=== PATIENT | male | born 1940 | race Caucasian/White ===

== ENCOUNTER 2018-01-23 07:39 | Inpatient (IN) | payer MEDICARE, OTHER ==
--- NOTE | 2018-01-23 08:08 | ERNOTE ---
<Anthony Parsons - Last Filed: 01/23/18 08:00> Dyspnea - General Presenting Symptoms: shortness of breath Time Seen by Provider: 01/23/18 08:00 Source: patient Exam Limitations: no limitations - Immun/Allergies/Home Medications Immunizations: IMMUNIZATION HX Immunizations Up to Date Yes History of Influenza Vaccine No Hx Pneumococcal Vaccination No Allergies/Adverse Reactions: Allergies No Known Allergies Allergy (Verified 01/23/18 10:56) Home Medications: HOME MEDICATIONS RX: Warfarin Sodium [Coumadin] 5 mg PO TUTHSA 02/27/12 [Last Taken 07/29/13] RX: Carvedilol [Coreg] 12.5 mg PO BID 07/29/13 [Last Taken 07/29/13] RX: Nitroglycerin [Nitrostat] 0.4 mg SL [id number] PRN 02/01/14 [Last Taken Unknown] RX: Acetaminophen [Tylenol] 650 mg PO Q6H PRN 12/08/15 [Last Taken Unknown] Aspirin [Aspirin Enteric Coated] 81 mg PO DAILY 02/15/16 [Last Taken Unknown] Warfarin Sodium [Coumadin] 2.5 mg PO SUMOWEFR 03/30/16 [Last Taken Unknown] RX: Atorvastatin Calcium 40 mg PO DAILY 12/29/16 [Last Taken Unknown] furosemide 20 mg tablet 20 mg PO DAILY #90 tab 10/26/17 [Last Taken Unknown] lisinopril 40 mg tablet 40 mg PO DAILY #90 tab 10/26/17 [Last Taken Unknown] finasteride 5 mg tablet 5 mg PO DAILY #30 tab 11/12/17 [Last Taken Unknown] potassium chloride ER 20 mEq tablet,extended release(part/cryst) 10 meq PO DAILY 30 Days #15 tab 12/10/17 [Last Taken Unknown] Cyanocobalamin (Vitamin B-12) [Vitamin B12] 1,000 mcg PO DAILY 01/23/18 [Last Taken Unknown] - History of Present Illness Narrative: Pt states he has been getting more short of breath for approx 2 weeks worsening over the past 3 days Severity: moderate, severe Treatment [employer]: paramedics, oxygen Initiating event: Reports: unknown Frequency of episodes: Reports: occassional episodes Modifying Factors - (Improves): Reports: oxygen Associated Symptoms-Dyspnea: Reports: chest pain/discomfort, cough Review of Systems - Review of Systems Constitutional: Absent: fever, chills Respiratory: Present: See HPI Cardiology: Present: chest pain, edema - increasing for 3-4 days Medical History (Last Reviewed 01/23/18 @ 08:04 by Anthony Parsons DO) COPD (chronic obstructive pulmonary disease) Congestive heart failure (CHF) Diabetes mellitus Hypertension Surgical History: Surgical History (Last Reviewed 01/23/18 @ 08:04 by Anthony Parsons DO) Pacemaker Family History: Family History (Last Reviewed 01/23/18 @ 07:52 by Rafael Palma RN) Other CHF (congestive heart failure) Diabetes Social History: Preferred Language Bruneian Smoking Status Never smoker Abuse History No History of abuse Psych History No pertinent hx Alcohol Use none Drug Use none Physical Exam - Physical Exam General Appearance: Present: wd/wn, alert, mild distress Head Exam: Present: normal inspection, no evidence of injury Respiratory: Present: decreased breath sounds Cardiovascular/Chest: Present: regular rate, rhythm Extremity Exam: Present: extremity edema - 3+ bilateral Neurological Exam: Present: alert, oriented, normal mood/affect Skin Exam: Present: warm/dry ED Progress - Vital Signs Vital Signs: Vital Signs 01/23/18 07:40 Temperature 36.6 C Pulse Rate 93 Respiratory Rate 25 H Blood Pressure 144/91 H - Progress/Reassessment Chief Complaint: Dyspnea - Transfer of Care Physician Sign Out: Anthony Parsons Receiving Physician: Parisa Casas Pending Results: Labs, X-ray results Expected Disposition: Admit Departure Clinical Impression: CHF exacerbation Qualifiers: Heart failure type: unspecified Qualified Code(s): I50.9 - Heart failure, unspecified - Departure Disposition: Still a patient Condition: Stable <Parisa Casas - Last Filed: 01/23/18 21:02> Dyspnea - General Presenting Symptoms: shortness of breath Source: patient Exam Limitations: no limitations - Immun/Allergies/Home Medications Immunizations: IMMUNIZATION HX Immunizations Up to Date Yes History of Influenza Vaccine No Hx Pneumococcal Vaccination No - History of Present Illness Narrative: Patient has been short of breath for about two weeks, worse for three days. for the last three days also cough with clear sputum, wheezing ad intermittent chest heaviness Review of Systems - Review of Systems Constitutional: Absent: fever, fussy ENT: Present: nasal drainage Respiratory: Present: shortness of breath, cough Cardiology: Present: chest pain Gastrointestinal/Abdominal: Absent: nausea, vomiting, abdominal pain Genitourinary: Present: no symptoms reported Skin: Absent: rash Neurological: Absent: headache Medical History (Last Reviewed 01/23/18 @ 08:24 by Parisa Casas MD) COPD (chronic obstructive pulmonary disease) Congestive heart failure (CHF) Diabetes mellitus Hypertension Surgical History: Surgical History (Last Updated 01/23/18 @ 08:24 by Parisa Casas MD) Hx of CABG Pacemaker Family History: Family History (Last Reviewed 01/23/18 @ 10:55 by Fermin Bolden RN) Other CHF (congestive heart failure) Diabetes Social History: Preferred Language [place]ian Smoking Status Never smoker Abuse History No History of abuse Psych History No pertinent hx Alcohol Use none Drug Use none Physical Exam - Physical Exam General Appearance: Present: wd/wn, alert, no apparent distress Head Exam: Present: normal inspection Ears, Nose, Throat: Present: normal pharynx Respiratory: Present: decreased breath sounds, expiration (prolonged) Cardiovascular/Chest: Present: regular rate, rhythm Gastrointestinal/Abdominal: Present: nontender, nondistended, soft Extremity Exam: Present: extremity edema Neurological Exam: Present: alert, oriented, normal mood/affect Skin Exam: Present: warm/dry, pallor ED Progress - Results and Orders Patient's Lab Results:: I have reviewed the patient's lab results. - Vital Signs Patient's Vital Signs:: I have reviewed the patient's vital signs. Vital Signs: Vital Signs 01/23/18 07:40 01/23/18 08:04 Temperature 36.6 C Pulse Rate 93 79 Respiratory Rate 25 H 19 Blood Pressure 144/91 H O2 Sat by Pulse Oximetry 92 L - EKG EKG: other - pacemaker EKG EKG read: Interp. by me - X-Ray X-Ray #1 X-Ray: chest - 1. Overall findings suggestive of congestive heart failure. Interpretation: Reviewed by me - Progress/Reassessment Progress Note-Subjective: 01/23/18 08:54 doesn't feel much better after neb treatment, slightly increased air movement d-dimer elevated but INR almost 4 which makes PE less likely 01/23/18 10:03 discussed test results with patient, suggested admission, patient agrees 01/23/18 10:05 discussed with zayra Baker to admit for observation
[2018-01-23 08:19] LABS: Hematocrit 34.9 % (42.0-52.0); Hemoglobin 10.7 gm/dL (13.5-18.0); Mean Cell Volume 98.6 fl (78-100); Mean Corpuscular Hemoglobin 30.2 pg (27-31); Mean Corpuscular Hgb Conc 30.7 g/dl (32-36); Mean Platelet Volume 9.6 fl (8-11.3); Neutrophil # 4.4 K/mm3 (1.3-6.0); Neutrophil % 73.6 % (42-75.0); Platelet Count 152 K/mm3 (150-450); Red Blood Count 3.54 M/mm3 (4.7-6.0); Red Cell Distribution Width 12.7 % (11.5-14.0)
[2018-01-23] MEDS ORDERED: ALBUTEROL SULFATE 2.5 MG/0.5 ML VIAL.NEB IH ONE (08:19)
[2018-01-23 08:25] LABS: INR 3.98 INR (0.90-1.10); Prothrombin Time (Patient) 40.4 Seconds (9.0-11.0)
[2018-01-23 08:35] LABS: Albumin * 3.2 gm/dl (3.4-5.0); BUN/Creatinine Ratio 13.4 (9.0-21.6); Bilirubin, Total 0.6 mg/dL (0.0-1.1); Ca. Corrected For Albumin 8.2 mg/dL (8.4-10.2); Calcium * 7.9 mg/dL (7.9-10.9); Carbon Dioxide 33.3 mmol/L (24-32.6); Potassium 4.3 mmol/L (3.4-4.6); Total Protein 6.8 gm/dL (6.2-8.2)
[2018-01-23] MEDS ORDERED: FUROSEMIDE 10 MG/ML VIAL IV ONE (09:59)
[2018-01-23] MEDS ORDERED: NITROGLYCERIN 0.4 MG/TAB BTL SL PRN (11:58)
--- NOTE | 2018-01-23 11:58 | HP ---
Chief Complaint - Chief Complaint Date of Service: 01/23/18 Time of Service: 11:34 Chief Complaint: Increasing shortness of breath History of Present Illness: Mitch Hudson, is a 77-year-old white male, with previous medical history all chronic atrial fibrillation, chronic renal failure, Stage III, COPD, coronary artery disease, hypertension, who was admitted on 01/23/2018 because of increasing shortness of breath. For the last month, the patient has been noticing that he had been short of breath especially with exertion. One week prior to admission he noticed swelling of his lower extremity, weight gain, and shortness of breath even at rest. For the last 3 days his shortness of breath is even worser and so he finally decided to go to the emergency room today. The emergency room he was found to have an elevated BNP of 8653, INR of 3.9, normal WBC, Cr of 2.01, CXR of CHF with pleural effusion, ABG showed Respiratory Acidosis. . He was given IV lasix and admitted for further evaluation and treatment. He does admit to not following his diet- low salt/diabetic consistent diet. Medical History (Last Reviewed 01/23/18 @ 10:55 by Fermin Bolden RN) COPD (chronic obstructive pulmonary disease) Congestive heart failure (CHF) Diabetes mellitus Hypertension Surgical History: Surgical History (Last Reviewed 01/23/18 @ 10:55 by Fermin Bolden RN) Hx of CABG Pacemaker Family History: Family History (Last Reviewed 01/23/18 @ 10:55 by Fermin Bolden RN) Other CHF (congestive heart failure) Diabetes Social History: Patient Lives/Resources Home Utilized Occupation Retired Preferred Language Guatemalan Do you have any zoroastrianism or No cultural preference? Smoking Status Former smoker Have you smoked in the past 12 No months Do you dip or chew tobacco No Abuse History No History of abuse Psych History No pertinent hx Alcohol Use none Drug Use none Review Of Systems (GEN) - Review of Systems Generalized/Overall Review: Absent: Weakness, Chills, Fever Respiratory: Present: Cough, Shortness of Breath, Orthopnea. Absent: Wheezing Cardiac: Present: Edema. Absent: Chest Pain, Palpitations Abdominal: Absent: Nausea, Vomiting Genitourinary: Absent: Urgency, Dysuria Musculoskeletal: Present: Joint Pain Immunizations: IMMUNIZATION HX Immunizations Up to Date Yes History of Influenza Vaccine No Hx Pneumococcal Vaccination No Allergies/Adverse Reactions: Allergies Allergy/AdvReac Type Severity Reaction Status Date / Time No Known Allergies Allergy Verified 01/23/18 10:56 Home Medications: HOME MEDICATIONS Warfarin Sodium [Coumadin] 5 mg PO TUTHSA 02/27/12 [Last Taken 07/29/13] Carvedilol [Coreg] 12.5 mg PO BID 07/29/13 [Last Taken 07/29/13] Nitroglycerin [Nitrostat] 0.4 mg SL [id number] PRN 02/01/14 [Last Taken Unknown] Acetaminophen [Tylenol] 650 mg PO Q6H PRN 12/08/15 [Last Taken Unknown] Aspirin [Aspirin Enteric Coated] 81 mg PO DAILY 02/15/16 [Last Taken Unknown] Warfarin Sodium [Coumadin] 2.5 mg PO SUMOWEFR 03/30/16 [Last Taken Unknown] Atorvastatin Calcium 40 mg PO DAILY 12/29/16 [Last Taken Unknown] furosemide 20 mg tablet 20 mg PO DAILY #90 tab 10/26/17 [Last Taken Unknown] lisinopril 40 mg tablet 40 mg PO DAILY #90 tab 10/26/17 [Last Taken Unknown] finasteride 5 mg tablet 5 mg PO DAILY #30 tab 11/12/17 [Last Taken Unknown] potassium chloride ER 20 mEq tablet,extended release(part/cryst) 10 meq PO DAILY 30 Days #15 tab 12/10/17 [Last Taken Unknown] Cyanocobalamin (Vitamin B-12) [Vitamin B12] 1,000 mcg PO DAILY 01/23/18 [Last Taken Unknown] Exam - Exam Vital Signs: Vital Signs - Last Taken Temp 36.4 C 01/23/18 10:57 Pulse 74 01/23/18 10:58 Resp 26 H 01/23/18 10:58 BP 138/80 01/23/18 10:58 Pulse Ox 96 01/23/18 10:58 Constitutional: Present: Alert, Oriented x3, Cooperative ENT Exam: Present: hearing grossly normal Eye Exam: bilateral eye: normal inspection, PERRL, EOMI Neck: Present: supple Respiratory: Present: decreased breath sounds, rales, No wheezing Cardiovascular/Chest: Present: no murmur, JVD, irregularly irregular Abdomen: Present: Normal bowel sounds, soft, nontender, distended Extremity: Present: no calf tenderness, lower extremity edema Diagnostic Studies: Abnormal Lab Results 01/23/18 01/23/18 01/23/18 Range/Units 08:10 08:10 08:10 RBC 3.54 L (4.7-6.0) M/mm3 Hgb 10.7 L (13.5-18.0) gm/dL Hct 34.9 L (42.0-52.0) % MCHC 30.7 L (32-36) g/dl Lymphocytes % 12.6 L (20-51) % Monocytes % 10.2 H (0.0-9) % Lymphocytes # 0.75 L (1.5-3.5) k/mm3 PT (9.0-11.0) Seconds INR (Anticoag Therapy) (0.90-1.10) INR D-Dimer 0.53 H (0.19-0.49) ug/mL pCO2 (35.0-48.0) mmHg pO2 (83.0-108.0) mmHg HCO3 (21.0-28.0) mmol/L Total CO2 (19.0-24.0) mmol/L ABG pH (7.35-7.45) ABG O2 Sat (Measured) (94.0-98.0) % Carbon Dioxide 33.3 H (24-32.6) mmol/L Anion Gap 6.0 L (6.8-13.8) mmol/L BUN 27 H (6-23) mg/dL Creatinine 2.01 H (0.4-1.4) mg/dL Est GFR (Non-Af Amer) 35 L (60-130) mL/min Calcium Adj for Albumin 8.2 L (8.4-10.2) mg/dL B-Natriuretic Peptide 8653 H (5-650) pg/mL Albumin 3.2 L (3.4-5.0) gm/dl 01/23/18 01/23/18 Range/Units 08:10 09:48 RBC (4.7-6.0) M/mm3 Hgb (13.5-18.0) gm/dL Hct (42.0-52.0) % MCHC (32-36) g/dl Lymphocytes % (20-51) % Monocytes % (0.0-9) % Lymphocytes # (1.5-3.5) k/mm3 PT 40.4 H (9.0-11.0) Seconds INR (Anticoag Therapy) 3.98 H (0.90-1.10) INR D-Dimer (0.19-0.49) ug/mL pCO2 52.7 H (35.0-48.0) mmHg pO2 64.5 L (83.0-108.0) mmHg HCO3 28.1 H (21.0-28.0) mmol/L Total CO2 29.7 H (19.0-24.0) mmol/L ABG pH 7.34 L (7.35-7.45) ABG O2 Sat (Measured) 91.2 L (94.0-98.0) % Carbon Dioxide (24-32.6) mmol/L Anion Gap (6.8-13.8) mmol/L BUN (6-23) mg/dL Creatinine (0.4-1.4) mg/dL Est GFR (Non-Af Amer) (60-130) mL/min Calcium Adj for Albumin (8.4-10.2) mg/dL B-Natriuretic Peptide (5-650) pg/mL Albumin (3.4-5.0) gm/dl Laboratory Results WBC 6.0 K/mm3 (4.0-10.5) 01/23/18 08:10 RBC 3.54 M/mm3 (4.7-6.0) L 01/23/18 08:10 Hgb 10.7 gm/dL (13.5-18.0) L 01/23/18 08:10 Hct 34.9 % (42.0-52.0) L 01/23/18 08:10 MCV 98.6 fl (78-100) 01/23/18 08:10 MCH 30.2 pg (27-31) 01/23/18 08:10 MCHC 30.7 g/dl (32-36) L 01/23/18 08:10 RDW 12.7 % (11.5-14.0) 01/23/18 08:10 Plt Count 152 K/mm3 (150-450) 01/23/18 08:10 MPV 9.6 fl (8-11.3) 01/23/18 08:10 Immature Gran % (Auto) 0.20 % (0.001-0.429) 01/23/18 08:10 Immature Gran # (Auto) 0.01 K/mm3 (0.000-0.0310) 01/23/18 08:10 Neutrophils % 73.6 % (42-75.0) 01/23/18 08:10 Lymphocytes % 12.6 % (20-51) L 01/23/18 08:10 Monocytes % 10.2 % (0.0-9) H 01/23/18 08:10 Eosinophils % 2.7 % (0.0-3.0) 01/23/18 08:10 Basophils % 0.7 % (0.0-1.0) 01/23/18 08:10 Nucleated RBC % 0.0 k/mm3 (0-1) 01/23/18 08:10 Neutrophils # 4.4 K/mm3 (1.3-6.0) 01/23/18 08:10 Lymphocytes # 0.75 k/mm3 (1.5-3.5) L 01/23/18 08:10 Monocytes # 0.6 k/mm3 (0.0-1.0) 01/23/18 08:10 Eosinophils # 0.2 k/mm3 (0.0-0.7) 01/23/18 08:10 Absolute Basophils 0.0 k/mm3 (0.0-0.1) 01/23/18 08:10 PT 40.4 Seconds (9.0-11.0) H 01/23/18 08:10 INR (Anticoag Therapy) 3.98 INR (0.90-1.10) H 01/23/18 08:10 D-Dimer 0.53 ug/mL (0.19-0.49) H 01/23/18 08:10 pCO2 52.7 mmHg (35.0-48.0) H 01/23/18 09:48 pO2 64.5 mmHg (83.0-108.0) L 01/23/18 09:48 HCO3 28.1 mmol/L (21.0-28.0) H 01/23/18 09:48 Total CO2 29.7 mmol/L (19.0-24.0) H 01/23/18 09:48 Base Excess 1.6 mmol/L (-2.0-3.0) 01/23/18 09:48 ABG pH 7.34 (7.35-7.45) L 01/23/18 09:48 ABG O2 Sat (Measured) 91.2 % (94.0-98.0) L 01/23/18 09:48 Sodium 136 mmol/L (132-142) 01/23/18 08:10 Plasma Sodium 136 mmol/L (130-142) 01/23/18 08:10 Potassium 4.3 mmol/L (3.4-4.6) 01/23/18 08:10 Chloride 101 mmol/L (97-106) 01/23/18 08:10 Carbon Dioxide 33.3 mmol/L (24-32.6) H 01/23/18 08:10 Anion Gap 6.0 mmol/L (6.8-13.8) L 01/23/18 08:10 BUN 27 mg/dL (6-23) H 01/23/18 08:10 Creatinine 2.01 mg/dL (0.4-1.4) H 01/23/18 08:10 Est GFR (Non-Af Amer) 35 mL/min (60-130) L 01/23/18 08:10 BUN/Creatinine Ratio 13.4 (9.0-21.6) 01/23/18 08:10 Random Glucose 103 mg/dL (70-110) 01/23/18 08:10 Calcium 7.9 mg/dL (7.9-10.9) 01/23/18 08:10 Calcium Adj for Albumin 8.2 mg/dL (8.4-10.2) L 01/23/18 08:10 Total Bilirubin 0.6 mg/dL (0.0-1.1) 01/23/18 08:10 AST 28 U/L (0-48) 01/23/18 08:10 ALT 34 U/L (19-67) 01/23/18 08:10 Alkaline Phosphatase 114 U/L (50-170) 01/23/18 08:10 B-Natriuretic Peptide 8653 pg/mL (5-650) H 01/23/18 08:10 Total Protein 6.8 gm/dL (6.2-8.2) 01/23/18 08:10 Albumin 3.2 gm/dl (3.4-5.0) L 01/23/18 08:10 Assessment/Plan - Assessment/Plan (1) Acute exacerbation of congestive heart failure Assessment: we will continue with IV diuresis and strict low salt diet, continue with O2. Problem: Acute Qualifiers: Heart failure type: unspecified Qualified Code(s): I50.9 - Heart failure, unspecified (2) Elevated INR Assessment: will hold coumadin Problem: Acute (3) Diabetes mellitus type 2 in obese Problem: Chronic (4) COPD (chronic obstructive pulmonary disease) Assessment: continue with O2. If no improvement will do trial of BiPap. Problem: Chronic (5) CRF (chronic renal failure) Problem: Chronic Qualifiers: Chronic kidney disease stage: stage 3 (moderate) Qualified Code(s): N18.3 - Chronic kidney disease, stage 3 (moderate) (6) CAD (coronary artery disease) Problem: Chronic Qualifiers: Coronary Disease-Associated Artery/Lesion type: bypass graft [place] vs. transplanted heart: [place] heart Associated angina: without angina Qualified Code(s): I25.810 - Atherosclerosis of coronary artery bypass graft(s) without angina pectoris
[2018-01-23] MEDS: FUROSEMIDE 10 MG/ML VIAL IV SCH ×2 (13:23→20:31)
[2018-01-23] MEDS: INSULIN LISPRO 100 UNITS/ML VIAL SC SCH (17:34)
[2018-01-23] MEDS: ROSUVASTATIN CALCIUM 20 MG TABLET PO SCH (20:30)
[2018-01-23] MEDS: CARVEDILOL 12.5 MG TABLET PO SCH (20:30)
[2018-01-24] MEDS: INSULIN LISPRO 100 UNITS/ML VIAL SC SCH ×3 (07:29→17:34)
[2018-01-24 08:06] LABS: Hematocrit 36.1 % (42.0-52.0); Hemoglobin 11.2 gm/dL (13.5-18.0); Mean Cell Volume 98.6 fl (78-100); Mean Corpuscular Hemoglobin 30.6 pg (27-31); Mean Platelet Volume 9.7 fl (8-11.3); Neutrophil # 6.7 K/mm3 (1.3-6.0); Neutrophil % 78.8 % (42-75.0); Platelet Count 166 K/mm3 (150-450); Red Blood Count 3.66 M/mm3 (4.7-6.0); Red Cell Distribution Width 12.7 % (11.5-14.0); White Blood Count 8.5 K/mm3 (4.0-10.5)
[2018-01-24 08:12] LABS: BUN/Creatinine Ratio 11.8 (9.0-21.6); Blood Urea Nitrogen 25 mg/dL (6-23); Calcium * 8.4 mg/dL (7.9-10.9); Carbon Dioxide 38.2 mmol/L (24-32.6); Chloride 96 mmol/L (97-106); Glucose * 124 mg/dL (70-110); Potassium 3.7 mmol/L (3.4-4.6); Sodium 128 mmol/L (132-142)
--- NOTE | 2018-01-24 08:28 | DS ---
(1) Acute exacerbation of congestive heart failure Problem: Acute Qualifiers: Heart failure type: unspecified Qualified Code(s): I50.9 - Heart failure, unspecified (2) Elevated INR Problem: Acute (3) Diabetes mellitus type 2 in obese Problem: Chronic (4) COPD (chronic obstructive pulmonary disease) Problem: Chronic (5) CRF (chronic renal failure) Problem: Chronic Qualifiers: Chronic kidney disease stage: stage 3 (moderate) Qualified Code(s): N18.3 - Chronic kidney disease, stage 3 (moderate) (6) CAD (coronary artery disease) Problem: Chronic Qualifiers: Coronary Disease-Associated Artery/Lesion type: bypass graft [place] vs. transplanted heart: [place] heart Associated angina: without angina Qualified Code(s): I25.810 - Atherosclerosis of coronary artery bypass graft(s) without angina pectoris Description of Stay: Mitch Hudson, is a 77-year-old white male, with previous medical history all chronic atrial fibrillation, chronic renal failure, Stage III, COPD, coronary artery disease, hypertension, who was admitted on 01/23/2018 because of increasing shortness of breath. For the last month, the patient has been noticing that he had been short of breath especially with exertion. One week prior to admission he noticed swelling of his lower extremity, weight gain, and shortness of breath even at rest. For the last 3 days his shortness of breath is even worser and so he finally decided to go to the emergency room today. The emergency room he was found to have an elevated BNP of 8653, INR of 3.9, normal WBC, Cr of 2.01, CXR of CHF with pleural effusion, ABG showed Respiratory Acidosis. . He was given IV lasix and admitted for further evaluation and t reatment. He does admit to not following his diet- low salt/diabetic consistent diet. Procedures Performed: none Results and Findings: Lab Pending Results 01/23/18 08:10: WBC 6.0, RBC 3.54 L, Hgb 10.7 L, Hct 34.9 L, MCV 98.6, MCH 30.2, MCHC 30.7 L, RDW 12.7, Plt Count 152, MPV 9.6, Immature Gran % (Auto) 0.20, Immature Gran # (Auto) 0.01, Neutrophils % 73.6, Lymphocytes % 12.6 L, Monocytes % 10.2 H, Eosinophils % 2.7, Basophils % 0.7, Nucleated RBC % 0.0, Neutrophils # 4.4, Lymphocytes # 0.75 L, Monocytes # 0.6, Eosinophils # 0.2, Absolute Basophils 0.0 01/23/18 08:10: Sodium 136, Plasma Sodium 136, Potassium 4.3, Chloride 101, Carbon Dioxide 33.3 H, Anion Gap 6.0 L, BUN 27 H, Creatinine 2.01 H, Est GFR (Non-Af Amer) 35 L, BUN/Creatinine Ratio 13.4, Random Glucose 103, Calcium 7.9, Calcium Adj for Albumin 8.2 L, Total Bilirubin 0.6, AST 28, ALT 34, Alkaline Phosphatase 114, B-Natriuretic Peptide 8653 H, Total Protein 6.8, Albumin 3.2 L 01/23/18 08:10: D-Dimer 0.53 H 01/23/18 08:10: PT 40.4 H, INR (Anticoag Therapy) 3.98 H 01/23/18 09:48: pCO2 52.7 H, pO2 64.5 L, HCO3 28.1 H, Total CO2 29.7 H, Base Excess 1.6, ABG pH 7.34 L, ABG O2 Sat (Measured) 91.2 L 01/24/18 07:59: WBC 8.5 D, RBC 3.66 L, Hgb 11.2 L, Hct 36.1 L, MCV 98.6, MCH 30.6, MCHC 31.0 L, RDW 12.7, Plt Count 166, MPV 9.7, Immature Gran % (Auto) 0.40, Immature Gran # (Auto) 0.03, Neutrophils % 78.8 H, Lymphocytes % 7.4 L, Monocytes % 11.4 H, Eosinophils % 1.4, Basophils % 0.6, Nucleated RBC % 0.0, Neutrophils # 6.7 H, Lymphocytes # 0.63 L, Monocytes # 1.0, Eosinophils # 0.1, Absolute Basophils 0.1 01/24/18 07:59: Sodium 128 L, Plasma Sodium 128 L, Potassium 3.7, Chloride 96 L, Carbon Dioxide 38.2 H, Anion Gap Less than 1.0 L, BUN 25 H, Creatinine 2.12 H, Est GFR (Non-Af Amer) 33 L, BUN/Creatinine Ratio 11.8, Random Glucose 124 H, Calcium 8.4 Discharge Location: Home Disposition: Home self-care Condition: Stable Discharge Activity: Activity as tolerated Discharge Diet: Low salt Referrals: Satish Cooley MD [Primary Care Provider] - Problem Oriented Discharge Instructions to Patient/Family: Smoking Cessation, Tips for Success, [id number] Additional Patient Instructions (free text): -Please make TCM appointment unless chcf discharge. Thank you! Ronna @ ext:[phone]. Complete Home Medications List: Complete Home Medication List: Warfarin Sodium [Coumadin] 5 mg PO TUTHSA 02/27/12 Carvedilol [Coreg] 12.5 mg PO BID 07/29/13 Nitroglycerin [Nitrostat] 0.4 mg SL [id number] PRN 02/01/14 Acetaminophen [Tylenol] 650 mg PO Q6H PRN 12/08/15 Aspirin [Aspirin Enteric Coated] 81 mg PO DAILY 02/15/16 Warfarin Sodium [Coumadin] 2.5 mg PO SUMOWEFR 03/30/16 Atorvastatin Calcium 40 mg PO DAILY 12/29/16 furosemide 20 mg tablet 20 mg PO DAILY #90 tab 10/26/17 lisinopril 40 mg tablet 40 mg PO DAILY #90 tab 10/26/17 finasteride 5 mg tablet 5 mg PO DAILY #30 tab 11/12/17 potassium chloride ER 20 mEq tablet,extended release(part/cryst) 10 meq PO DAILY 30 Days #15 tab 12/10/17 Cyanocobalamin (Vitamin B-12) [Vitamin B12] 1,000 mcg PO DAILY 01/23/18
[2018-01-24] MEDS: LISINOPRIL 40 MG TABLET PO SCH (09:11)
[2018-01-24] MEDS: POTASSIUM CHLORIDE 10 MEQ TABLET.SA PO SCH (09:11)
[2018-01-24] MEDS: ASPIRIN 81 MG TABLET.DR PO SCH (09:11)
[2018-01-24] MEDS: CARVEDILOL 12.5 MG TABLET PO SCH ×2 (09:11→21:56)
[2018-01-24] MEDS: CYANOCOBALAMIN 1,000 MCG TABLET PO SCH (09:12)
[2018-01-24] MEDS: FUROSEMIDE 10 MG/ML VIAL IV SCH ×2 (09:12→21:57)
[2018-01-24] MEDS: FINASTERIDE 5 MG TABLET PO SCH (09:12)
--- NOTE | 2018-01-24 09:23 | PN ---
Subjective - Date and Time Seen Date: 01/24/18 Time: 09:15 Subjective Narrative: Patient clinically feels better. Had significant reduction in his leg swelling. Objective - Review of Systems Generalized/Overall Review: Reports: Weakness. Denies: Chills, Fever Respiratory: Reports: Shortness of Breath. Denies: Cough Cardiac: Reports: Edema. Denies: Chest Pain, Palpitations Abdominal: Denies: Nausea, Vomiting Genitourinary Symptoms: Denies: Urgency, Frequency Musculoskeletal Complaints: Denies: Joint Pain - Vitals Vitals: Last Vital Signs Temp 36.4 C 01/24/18 06:46 Pulse 78 01/24/18 06:46 Resp 22 H 01/24/18 06:46 BP 137/74 01/24/18 06:46 Pulse Ox 93 01/24/18 09:08 - Abnormal Lab Findings Abnormal Lab Findings: Abnormal Lab Results 01/23/18 01/24/18 01/24/18 Range/Units 09:48 07:59 07:59 RBC 3.66 L (4.7-6.0) M/mm3 Hgb 11.2 L (13.5-18.0) gm/dL Hct 36.1 L (42.0-52.0) % MCHC 31.0 L (32-36) g/dl Neutrophils % 78.8 H (42-75.0) % Lymphocytes % 7.4 L (20-51) % Monocytes % 11.4 H (0.0-9) % Neutrophils # 6.7 H (1.3-6.0) K/mm3 Lymphocytes # 0.63 L (1.5-3.5) k/mm3 pCO2 52.7 H (35.0-48.0) mmHg pO2 64.5 L (83.0-108.0) mmHg HCO3 28.1 H (21.0-28.0) mmol/L Total CO2 29.7 H (19.0-24.0) mmol/L ABG pH 7.34 L (7.35-7.45) ABG O2 Sat (Measured) 91.2 L (94.0-98.0) % Sodium 128 L (132-142) mmol/L Plasma Sodium 128 L (130-142) mmol/L Chloride 96 L (97-106) mmol/L Carbon Dioxide 38.2 H (24-32.6) mmol/L Anion Gap Less than 1.0 L (6.8-13.8) mmol/L BUN 25 H (6-23) mg/dL Creatinine 2.12 H (0.4-1.4) mg/dL Est GFR (Non-Af Amer) 33 L (60-130) mL/min Random Glucose 124 H (70-110) mg/dL - Exam Constitutional: Present: Alert, Oriented x3, Cooperative ENT Exam: Present: hearing grossly normal Neck: Present: supple Respiratory: Present: decreased breath sounds, rales, No wheezing Cardiovascular/Chest: Present: no JVD, no murmur, irregularly irregular Abdomen: Present: Normal bowel sounds, soft, nontender, nondistended Extremity: Present: no calf tenderness, lower extremity edema Assessment/Plan - Problems/Diagnosis (1) Hyponatremia Problem: Acute Narrative: likely still due to hypotonic, hypervolemic, hyponatremia with IV mobilization from his third space. continue with IV diuresis. will transfer to acute status. (2) Acute exacerbation of congestive heart failure Problem: Acute Qualifiers: Heart failure type: unspecified Qualified Code(s): I50.9 - Heart failure, unspecified Narrative: continue with IV diuresis (3) Elevated INR Problem: Acute Narrative: will recheck and monitor (4) Diabetes mellitus type 2 in obese Problem: Chronic (5) COPD (chronic obstructive pulmonary disease) Problem: Chronic Narrative: O2 down to 5 . he is usually at 4-4.5 L at home. will repeat ABG. ADDENDUM: ABG shows no significant change from yesterday , leading me to believe this is his usual baseline. will defer BiPap. (6) CRF (chronic renal failure) Problem: Chronic Qualifiers: Chronic kidney disease stage: stage 3 (moderate) Qualified Code(s): N18.3 - Chronic kidney disease, stage 3 (moderate) (7) CAD (coronary artery disease) Problem: Chronic Qualifiers: Coronary Disease-Associated Artery/Lesion type: bypass graft [place] vs. transplanted heart: [place] heart Associated angina: without angina Qualified Code(s): I25.810 - Atherosclerosis of coronary artery bypass graft(s) without angina pectoris
[2018-01-24 09:58] LABS: Prothrombin Time (Patient) 46.7 Seconds (9.0-11.0)
[2018-01-24 10:04] LABS: INR 4.6 INR (0.90-1.10)
[2018-01-24] MEDS: ROSUVASTATIN CALCIUM 20 MG TABLET PO SCH (21:56)
[2018-01-25 05:37] LABS: Prothrombin Time (Patient) 34.4 Seconds (9.0-11.0)
[2018-01-25 05:38] LABS: INR 3.4 INR (0.90-1.10)
[2018-01-25] MEDS: INSULIN LISPRO 100 UNITS/ML VIAL SC SCH ×3 (06:52→16:49)
[2018-01-25 08:05] LABS: Anion Gap 8.7 mmol/L (6.8-13.8); BUN/Creatinine Ratio 14.1 (9.0-21.6); Calcium * 8.5 mg/dL (7.9-10.9); Carbon Dioxide 36.2 mmol/L (24-32.6); Estimated Creat Clear 32.9; Potassium 3.9 mmol/L (3.4-4.6)
[2018-01-25] MEDS: FINASTERIDE 5 MG TABLET PO SCH (08:17)
[2018-01-25] MEDS: ASPIRIN 81 MG TABLET.DR PO SCH (08:17)
[2018-01-25] MEDS: CARVEDILOL 12.5 MG TABLET PO SCH ×2 (08:17→20:19)
[2018-01-25] MEDS: POTASSIUM CHLORIDE 10 MEQ TABLET.SA PO SCH ×2 (08:17→16:50)
[2018-01-25] MEDS: CYANOCOBALAMIN 1,000 MCG TABLET PO SCH (08:17)
[2018-01-25] MEDS: LISINOPRIL 40 MG TABLET PO SCH (08:18)
[2018-01-25] MEDS: FUROSEMIDE 10 MG/ML VIAL IV SCH ×2 (08:18→20:21)
--- NOTE | 2018-01-25 09:38 | PN ---
Subjective - Date and Time Seen Date: 01/25/18 Time: 09:35 Subjective Narrative: Patient is still needing 6 L to keep O2 sats 90 and above. Refuses PT. Objective - Review of Systems Generalized/Overall Review: Reports: Weakness. Denies: Chills, Fever EENTM: Denies: Blurred Vision Respiratory: Reports: Shortness of Breath, Orthopnea. Denies: Cough Cardiac: Reports: Edema. Denies: Chest Pain, Palpitations Abdominal: Denies: Nausea, Vomiting Genitourinary Symptoms: Denies: Urgency, Frequency Musculoskeletal Complaints: Reports: Joint Pain - Vitals Vitals: Last Vital Signs Temp 36.6 C 01/25/18 07:20 Pulse 82 01/25/18 08:18 Resp 20 01/25/18 07:20 BP 133/67 01/25/18 08:18 Pulse Ox 90 L 01/25/18 07:20 - Abnormal Lab Findings Abnormal Lab Findings: Abnormal Lab Results 01/24/18 01/24/18 01/25/18 Range/Units 08:40 09:20 05:11 PT 46.7 H 34.4 H (9.0-11.0) Seconds INR (Anticoag Therapy) 4.60 H* 3.40 H (0.90-1.10) INR pCO2 52.8 H (35.0-48.0) mmHg pO2 61.8 L (83.0-108.0) mmHg HCO3 28.4 H (21.0-28.0) mmol/L Total CO2 30.0 H (19.0-24.0) mmol/L ABG O2 Sat (Measured) 90.2 L (94.0-98.0) % Carbon Dioxide (24-32.6) mmol/L BUN (6-23) mg/dL Creatinine (0.4-1.4) mg/dL Est GFR (Non-Af Amer) (60-130) mL/min Random Glucose (70-110) mg/dL B-Natriuretic Peptide (5-650) pg/mL 01/25/18 Range/Units 05:11 PT (9.0-11.0) Seconds INR (Anticoag Therapy) (0.90-1.10) INR pCO2 (35.0-48.0) mmHg pO2 (83.0-108.0) mmHg HCO3 (21.0-28.0) mmol/L Total CO2 (19.0-24.0) mmol/L ABG O2 Sat (Measured) (94.0-98.0) % Carbon Dioxide 36.2 H (24-32.6) mmol/L BUN 30 H (6-23) mg/dL Creatinine 2.13 H (0.4-1.4) mg/dL Est GFR (Non-Af Amer) 32 L (60-130) mL/min Random Glucose 120 H (70-110) mg/dL B-Natriuretic Peptide 7899 H (5-650) pg/mL - Exam Constitutional: Present: Alert, Oriented x3, Cooperative ENT Exam: Present: hearing grossly normal Neck: Present: supple Respiratory: Present: decreased breath sounds, rales, No wheezing Cardiovascular/Chest: Present: no murmur, JVD, irregularly irregular Abdomen: Present: Normal bowel sounds, soft, nontender, nondistended Extremity: Present: no calf tenderness, lower extremity edema Assessment/Plan - Problems/Diagnosis (1) Hyponatremia Problem: Resolved (2) Acute exacerbation of congestive heart failure Problem: Acute Qualifiers: Heart failure type: unspecified Qualified Code(s): I50.9 - Heart failure, unspecified Narrative: continue with IV diuresis (3) Elevated INR Problem: Acute Narrative: coumadin on hold (4) Diabetes mellitus type 2 in obese Problem: Chronic (5) COPD (chronic obstructive pulmonary disease) Problem: Chronic (6) CRF (chronic renal failure) Problem: Chronic Qualifiers: Chronic kidney disease stage: stage 3 (moderate) Qualified Code(s): N18.3 - Chronic kidney disease, stage 3 (moderate) (7) CAD (coronary artery disease) Problem: Chronic Qualifiers: Coronary Disease-Associated Artery/Lesion type: bypass graft [place] vs. transplanted heart: [place] heart Associated angina: without angina Qualified Code(s): I25.810 - Atherosclerosis of coronary artery bypass graft(s) without angina pectoris
[2018-01-25] MEDS: ROSUVASTATIN CALCIUM 20 MG TABLET PO SCH (20:20)
[2018-01-26 05:33] LABS: Prothrombin Time (Patient) 21.3 Seconds (9.0-11.0)
[2018-01-26 05:34] LABS: INR 2.11 INR (0.90-1.10)
[2018-01-26] MEDS: INSULIN LISPRO 100 UNITS/ML VIAL SC SCH ×3 (07:07→17:03)
[2018-01-26] MEDS: CARVEDILOL 12.5 MG TABLET PO SCH ×2 (09:11→20:14)
[2018-01-26] MEDS: POTASSIUM CHLORIDE 10 MEQ TABLET.SA PO SCH ×2 (09:11→17:02)
[2018-01-26] MEDS: ASPIRIN 81 MG TABLET.DR PO SCH (09:11)
[2018-01-26] MEDS: LISINOPRIL 40 MG TABLET PO SCH (09:11)
[2018-01-26] MEDS: FINASTERIDE 5 MG TABLET PO SCH (09:11)
[2018-01-26] MEDS: CYANOCOBALAMIN 1,000 MCG TABLET PO SCH (09:11)
--- NOTE | 2018-01-26 09:43 | PN ---
Progess Note - Interim Date: 01/26/18 Time: 09:41 Narrative: 01/26/18 09:41 His back to his usual 4L NC /mask from home. Does not want HH but willing to go home first befire going to [facility] for PT.
[2018-01-26] MEDS: FUROSEMIDE 10 MG/ML VIAL IV SCH (10:26)
--- NOTE | 2018-01-26 12:41 | PN ---
Subjective - Date and Time Seen Date: 01/26/18 Time: 12:38 Subjective Narrative: Patient willing to go to [facility] on Sunday. Objective - Review of Systems Generalized/Overall Review: Reports: Weakness. Denies: Chills Respiratory: Reports: Shortness of Breath. Denies: Cough, Wheezing Cardiac: Reports: Edema. Denies: Chest Pain, Palpitations Abdominal: Denies: Nausea, Vomiting Genitourinary Symptoms: Denies: Urgency, Frequency Musculoskeletal Complaints: Reports: Joint Pain - Vitals Vitals: Last Vital Signs Temp 36.8 C 01/26/18 10:00 Pulse 82 01/26/18 10:26 Resp 20 01/26/18 10:00 BP 131/54 01/26/18 10:26 Pulse Ox 90 L 01/26/18 10:00 - Abnormal Lab Findings Abnormal Lab Findings: Abnormal Lab Results 01/26/18 Range/Units 05:10 PT 21.3 H (9.0-11.0) Seconds INR (Anticoag Therapy) 2.11 H (0.90-1.10) INR - Exam Constitutional: Present: Alert, Oriented x3, Cooperative ENT Exam: Present: hearing grossly normal Neck: Present: supple Respiratory: Present: decreased breath sounds, rales, No wheezing Cardiovascular/Chest: Present: no murmur, JVD, irregularly irregular Abdomen: Present: Normal bowel sounds, soft, nontender, nondistended Extremity: Present: no calf tenderness, lower extremity edema - decreased Assessment/Plan - Problems/Diagnosis (1) Hyponatremia Problem: Resolved (2) Acute exacerbation of congestive heart failure Problem: Acute Qualifiers: Heart failure type: unspecified Qualified Code(s): I50.9 - Heart failure, unspecified Narrative: continue with IV diuresis while in the hospital. will recheck BMP/BNP in the morning (3) Elevated INR Problem: Acute (4) Diabetes mellitus type 2 in obese Problem: Chronic Narrative: 2.11 . restart Coumadin at 3 mmg PO QD. (5) COPD (chronic obstructive pulmonary disease) Problem: Chronic (6) CRF (chronic renal failure) Problem: Chronic Qualifiers: Chronic kidney disease stage: stage 3 (moderate) Qualified Code(s): N18.3 - Chronic kidney disease, stage 3 (moderate) (7) CAD (coronary artery disease) Problem: Chronic Qualifiers: Coronary Disease-Associated Artery/Lesion type: bypass graft [place] vs. transplanted heart: [place] heart Associated angina: without angina Qualified Code(s): I25.810 - Atherosclerosis of coronary artery bypass graft(s) without angina pectoris
[2018-01-26] MEDS: WARFARIN SODIUM 3 MG TABLET PO SCH (17:02)
[2018-01-26] MEDS: ROSUVASTATIN CALCIUM 20 MG TABLET PO SCH (20:14)
[2018-01-27 05:41] LABS: Prothrombin Time (Patient) 17.1 Seconds (9.0-11.0)
[2018-01-27 06:00] LABS: INR 1.7 INR (0.90-1.10)
[2018-01-27] MEDS: INSULIN LISPRO 100 UNITS/ML VIAL SC SCH ×3 (07:13→16:58)
[2018-01-27] MEDS ORDERED: FUROSEMIDE 10 MG/ML VIAL IV SCH (09:00)
[2018-01-27] MEDS: CYANOCOBALAMIN 1,000 MCG TABLET PO SCH (09:31)
[2018-01-27] MEDS: POTASSIUM CHLORIDE 10 MEQ TABLET.SA PO SCH ×2 (09:31→16:59)
[2018-01-27] MEDS: FINASTERIDE 5 MG TABLET PO SCH (09:31)
[2018-01-27] MEDS: ASPIRIN 81 MG TABLET.DR PO SCH (09:31)
[2018-01-27] MEDS: LISINOPRIL 40 MG TABLET PO SCH (09:32)
[2018-01-27] MEDS: CARVEDILOL 12.5 MG TABLET PO SCH ×2 (09:32→20:23)
[2018-01-27 09:38] LABS: Anion Gap 5.7 mmol/L (6.8-13.8); BUN/Creatinine Ratio 20.7 (9.0-21.6); Calcium * 8.5 mg/dL (7.9-10.9); Carbon Dioxide 35.8 mmol/L (24-32.6); Estimated Creat Clear 24.6; Potassium 4.5 mmol/L (3.4-4.6)
--- NOTE | 2018-01-27 09:44 | PN ---
Subjective - Date and Time Seen Date: 01/27/18 Time: 09:40 Subjective Narrative: had a long conveersation about the need for NH palcement to get stronger before going home. Objective - Review of Systems Generalized/Overall Review: Reports: Weakness. Denies: Chills, Fever Respiratory: Reports: Shortness of Breath. Denies: Wheezing Cardiac: Reports: Edema. Denies: Chest Pain, Palpitations Abdominal: Denies: Nausea, Vomiting Genitourinary Symptoms: Denies: Urgency, Frequency - Vitals Vitals: Last Vital Signs Temp 36.6 C 01/27/18 06:53 Pulse 78 01/27/18 06:53 Resp 18 01/27/18 06:53 BP 113/58 01/27/18 06:53 Pulse Ox 92 L 01/27/18 06:53 - Abnormal Lab Findings Abnormal Lab Findings: Abnormal Lab Results 01/27/18 01/27/18 Range/Units 05:15 Unknown PT 17.1 H (9.0-11.0) Seconds INR (Anticoag Therapy) 1.70 H (0.90-1.10) INR Carbon Dioxide 35.8 H (24-32.6) mmol/L Anion Gap 5.7 L (6.8-13.8) mmol/L BUN 59 H D (6-23) mg/dL Creatinine 2.85 H D (0.4-1.4) mg/dL Est GFR (Non-Af Amer) 23 L D (60-130) mL/min Random Glucose 136 H (70-110) mg/dL - Exam Constitutional: Present: Alert, Oriented x3, Cooperative ENT Exam: Present: hearing grossly normal Neck: Present: supple Respiratory: Present: decreased breath sounds, rales, No wheezing Cardiovascular/Chest: Present: no JVD, no murmur, irregularly irregular Abdomen: Present: Normal bowel sounds, soft, nontender, nondistended Extremity: Present: no calf tenderness, pedal edema Assessment/Plan - Problems/Diagnosis (1) Acute exacerbation of congestive heart failure Problem: Acute Qualifiers: Heart failure type: unspecified Qualified Code(s): I50.9 - Heart failure, unspecified Narrative: on IV diuresis ( but decreased ti OD from BID) while awaiting NH palcement. will decrease his Coreg and Lisinopril for now as his BP nyhr 90's. for possible discharge in the morning pending availabilty of room in [place] (2) Hyponatremia Problem: Resolved (3) Elevated INR Problem: Resolved Narrative: Coumadin restarted (4) Diabetes mellitus type 2 in obese Problem: Chronic (5) COPD (chronic obstructive pulmonary disease) Problem: Chronic (6) CRF (chronic renal failure) Problem: Chronic Qualifiers: Chronic kidney disease stage: stage 3 (moderate) Qualified Code(s): N18.3 - Chronic kidney disease, stage 3 (moderate) (7) CAD (coronary artery disease) Problem: Chronic Qualifiers: Coronary Disease-Associated Artery/Lesion type: bypass graft [place] vs. transplanted heart: [place] heart Associated angina: without angina Qualified Code(s): I25.810 - Atherosclerosis of coronary artery bypass graft(s) without angina pectoris (8) BPH (benign prostatic hyperplasia) Problem: Acute Narrative: had to be straight cath last night . on proscar but will defer fomx for now due to BP in the 90's.
[2018-01-27 10:07] LABS: Hematocrit 33.7 % (42.0-52.0); Hemoglobin 10.3 gm/dL (13.5-18.0); Mean Cell Volume 99.4 fl (78-100); Mean Corpuscular Hemoglobin 30.4 pg (27-31); Mean Corpuscular Hgb Conc 30.6 g/dl (32-36); Mean Platelet Volume 10.2 fl (8-11.3); Neutrophil # 6.2 K/mm3 (1.3-6.0); Neutrophil % 73.9 % (42-75.0); Platelet Count 166 K/mm3 (150-450); Red Blood Count 3.39 M/mm3 (4.7-6.0); Red Cell Distribution Width 12.6 % (11.5-14.0); White Blood Count 8.3 K/mm3 (4.0-10.5)
[2018-01-27 16:46] LABS: Albumin * 2.8 gm/dl (3.4-5.0); Anion Gap 7.1 mmol/L (6.8-13.8); BUN/Creatinine Ratio 22.1 (9.0-21.6); Bilirubin, Total 0.5 mg/dL (0.0-1.1); Ca. Corrected For Albumin 8.9 mg/dL (8.4-10.2); Calcium * 8.3 mg/dL (7.9-10.9); Carbon Dioxide 34.2 mmol/L (24-32.6); Potassium 5.3 mmol/L (3.4-4.6); Total Protein 6.9 gm/dL (6.2-8.2)
[2018-01-27] MEDS: NORMAL SALINE 1,000 ML IV PRN (16:59)
[2018-01-27] MEDS: WARFARIN SODIUM 3 MG TABLET PO SCH (17:00)
[2018-01-27] MEDS: ROSUVASTATIN CALCIUM 20 MG TABLET PO SCH (20:24)
[2018-01-27] MEDS: ACETAMINOPHEN 325 MG TABLET PO PRN (22:37)
[2018-01-28] MEDS: NORMAL SALINE 1,000 ML IV PRN ×2 (04:45→14:34)
[2018-01-28 05:58] LABS: Prothrombin Time (Patient) 16.5 Seconds (9.0-11.0)
[2018-01-28 06:01] LABS: INR 1.64 INR (0.90-1.10)
[2018-01-28] MEDS: INSULIN LISPRO 100 UNITS/ML VIAL SC SCH ×3 (06:54→16:26)
[2018-01-28 07:13] LABS: Anion Gap 3.8 mmol/L (6.8-13.8); Carbon Dioxide 34.2 mmol/L (24-32.6); Estimated Creat Clear 22.3
[2018-01-28] MEDS ORDERED: NORMAL SALINE 250 ML IV ONE (07:56)
--- NOTE | 2018-01-28 08:11 | PN ---
Subjective - Date and Time Seen Date: 01/28/18 Time: 08:04 Subjective Narrative: patient has been coughing. had urinary retention again last night. Bun/Cr is up. Objective - Review of Systems Generalized/Overall Review: Reports: Weakness. Denies: Chills, Fever Respiratory: Reports: Cough, Shortness of Breath Cardiac: Reports: Edema. Denies: Chest Pain, Palpitations Abdominal: Denies: Nausea, Vomiting Genitourinary Symptoms: Denies: Urgency, Frequency - Vitals Vitals: Last Vital Signs Temp 36.4 C 01/28/18 07:47 Pulse 72 01/28/18 07:47 Resp 20 01/28/18 07:47 BP 86/50 L 01/28/18 07:47 Pulse Ox 99 01/28/18 07:47 - Abnormal Lab Findings Abnormal Lab Findings: Abnormal Lab Results 01/27/18 01/27/18 01/27/18 Range/Units 05:15 05:15 16:23 RBC 3.39 L (4.7-6.0) M/mm3 Hgb 10.3 L (13.5-18.0) gm/dL Hct 33.7 L (42.0-52.0) % MCHC 30.6 L (32-36) g/dl Lymphocytes % 7.9 L (20-51) % Monocytes % 16.1 H (0.0-9) % Neutrophils # 6.2 H (1.3-6.0) K/mm3 Lymphocytes # 0.66 L (1.5-3.5) k/mm3 Monocytes # 1.3 H (0.0-1.0) k/mm3 PT (9.0-11.0) Seconds INR (Anticoag Therapy) (0.90-1.10) INR Potassium 5.3 H (3.4-4.6) mmol/L Carbon Dioxide 35.8 H 34.2 H (24-32.6) mmol/L Anion Gap 5.7 L (6.8-13.8) mmol/L BUN 59 H D 68 H (6-23) mg/dL Creatinine 2.85 H D 3.07 H (0.4-1.4) mg/dL Est GFR (Non-Af Amer) 23 L D 21 L (60-130) mL/min BUN/Creatinine Ratio 22.1 H (9.0-21.6) Random Glucose 136 H 111 H (70-110) mg/dL ALT 18 L (19-67) U/L B-Natriuretic Peptide 7183 H (5-650) pg/mL Albumin 2.8 L (3.4-5.0) gm/dl 01/28/18 01/28/18 Range/Units 05:35 05:35 RBC (4.7-6.0) M/mm3 Hgb (13.5-18.0) gm/dL Hct (42.0-52.0) % MCHC (32-36) g/dl Lymphocytes % (20-51) % Monocytes % (0.0-9) % Neutrophils # (1.3-6.0) K/mm3 Lymphocytes # (1.5-3.5) k/mm3 Monocytes # (0.0-1.0) k/mm3 PT 16.5 H (9.0-11.0) Seconds INR (Anticoag Therapy) 1.64 H (0.90-1.10) INR Potassium 5.0 H (3.4-4.6) mmol/L Carbon Dioxide 34.2 H (24-32.6) mmol/L Anion Gap 3.8 L (6.8-13.8) mmol/L BUN 69 H (6-23) mg/dL Creatinine 3.14 H (0.4-1.4) mg/dL Est GFR (Non-Af Amer) 21 L (60-130) mL/min BUN/Creatinine Ratio 22.0 H (9.0-21.6) Random Glucose 120 H (70-110) mg/dL ALT (19-67) U/L B-Natriuretic Peptide (5-650) pg/mL Albumin (3.4-5.0) gm/dl - Exam Constitutional: Present: Alert, Oriented x3, Cooperative ENT Exam: Present: hearing grossly normal Neck: Present: supple Respiratory: Present: decreased breath sounds, No rales, No wheezing Cardiovascular/Chest: Present: no JVD, no murmur, irregularly irregular Abdomen: Present: Normal bowel sounds, soft, nontender, nondistended Extremity: Present: no calf tenderness, pedal edema Assessment/Plan Plan Narrative: Will defer discharge to [place] for now due to worsening of kidney function. - Problems/Diagnosis (1) Cough Problem: Acute Narrative: will get a CXR (2) CRF (chronic renal failure) Problem: Chronic Qualifiers: Chronic kidney disease stage: stage 3 (moderate) Qualified Code(s): N18.3 - Chronic kidney disease, stage 3 (moderate) Narrative: ARF on CRF likely due to overdiuresis. Will hold Lasix and Lisnopril . (3) Acute exacerbation of congestive heart failure Problem: Acute Qualifiers: Heart failure type: unspecified Qualified Code(s): I50.9 - Heart failure, unspecified (4) Hyponatremia Problem: Resolved (5) Elevated INR Problem: Resolved (6) Diabetes mellitus type 2 in obese Problem: Chronic (7) COPD (chronic obstructive pulmonary disease) Problem: Chronic (8) CAD (coronary artery disease) Problem: Chronic Qualifiers: Coronary Disease-Associated Artery/Lesion type: bypass graft [place] vs. transplanted heart: [place] heart Associated angina: without angina Qualified Code(s): I25.810 - Atherosclerosis of coronary artery bypass graft(s) without angina pectoris (9) BPH (benign prostatic hyperplasia) Problem: Acute Narrative: with Urinary retention intermittently. on Proscar. did not start Flomax for now due to low BP. (10) Low blood pressure Problem: Acute Qualifiers: Hypotension type: other hypotension type Qualified Code(s): I95.89 - Other hypotension Narrative: likely due to over diuresis. will give 25o ml IV bolus x 1 and continue with IVF at 100 ml /hour.
[2018-01-28] MEDS: ASPIRIN 81 MG TABLET.DR PO SCH (09:17)
[2018-01-28] MEDS: POTASSIUM CHLORIDE 10 MEQ TABLET.SA PO SCH ×2 (09:18→16:29)
[2018-01-28] MEDS: CYANOCOBALAMIN 1,000 MCG TABLET PO SCH (09:18)
[2018-01-28] MEDS: FINASTERIDE 5 MG TABLET PO SCH (09:18)
[2018-01-28] MEDS ORDERED: CARVEDILOL 3.125 MG TABLET PO ONE (10:04)
[2018-01-28] MEDS: CARVEDILOL 12.5 MG TABLET PO SCH ×2 (10:05→20:33)
[2018-01-28] MEDS: WARFARIN SODIUM 3 MG TABLET PO SCH (16:29)
[2018-01-28] MEDS: ACETAMINOPHEN 325 MG TABLET PO PRN (16:35)
[2018-01-28] MEDS: ROSUVASTATIN CALCIUM 20 MG TABLET PO SCH (20:33)
[2018-01-29] MEDS: NORMAL SALINE 1,000 ML IV PRN ×2 (01:03→20:32)
[2018-01-29 05:22] LABS: Hematocrit 32.5 % (42.0-52.0); Mean Cell Volume 99.1 fl (78-100); Mean Corpuscular Hemoglobin 30.5 pg (27-31); Mean Corpuscular Hgb Conc 30.8 g/dl (32-36); Mean Platelet Volume 9.1 fl (8-11.3); Neutrophil # 5.2 K/mm3 (1.3-6.0); Neutrophil % 72.8 % (42-75.0); Platelet Count 146 K/mm3 (150-450); Red Blood Count 3.28 M/mm3 (4.7-6.0); Red Cell Distribution Width 12.5 % (11.5-14.0); White Blood Count 7.2 K/mm3 (4.0-10.5)
[2018-01-29 05:30] LABS: Anion Gap 6.3 mmol/L (6.8-13.8); BUN/Creatinine Ratio 24.2 (9.0-21.6); Calcium * 8.3 mg/dL (7.9-10.9); Carbon Dioxide 31.3 mmol/L (24-32.6); Potassium 5.6 mmol/L (3.4-4.6)
[2018-01-29 05:37] LABS: Prothrombin Time (Patient) 18.4 Seconds (9.0-11.0)
[2018-01-29 05:38] LABS: INR 1.83 INR (0.90-1.10)
[2018-01-29] MEDS: INSULIN LISPRO 100 UNITS/ML VIAL SC SCH ×3 (06:21→16:39)
[2018-01-29] MEDS ORDERED: ALBUTEROL SULFATE/IPRATROPIUM 3 ML NEBU IH PRN (07:10)
[2018-01-29] MEDS ORDERED: FUROSEMIDE 10 MG/ML VIAL IV ONE (07:12)
--- NOTE | 2018-01-29 08:13 | PN ---
Subjective - Date and Time Seen Date: 01/29/18 Time: 08:07 Subjective Narrative: Patient had desaturation this morning. CXR yesterday showed ateleactasis vs pneumonia but WBC was not elevated. interval improvement of pulmonary congestion. Objective - Review of Systems Generalized/Overall Review: Reports: Weakness. Denies: Chills, Fever Respiratory: Reports: Cough, Shortness of Breath Cardiac: Reports: Edema. Denies: Chest Pain, Palpitations Abdominal: Denies: Nausea, Vomiting Genitourinary Symptoms: Denies: Urgency, Frequency - Vitals Vitals: Last Vital Signs Temp 36.7 C 01/29/18 07:10 Pulse 85 01/29/18 07:41 Resp 28 H 01/29/18 07:27 BP 129/83 01/29/18 07:41 Pulse Ox 91 L 01/29/18 07:30 - Abnormal Lab Findings Abnormal Lab Findings: Abnormal Lab Results 01/29/18 01/29/18 01/29/18 Range/Units 05:19 05:19 05:19 RBC 3.28 L (4.7-6.0) M/mm3 Hgb 10.0 L (13.5-18.0) gm/dL Hct 32.5 L (42.0-52.0) % MCHC 30.8 L (32-36) g/dl Plt Count 146 L (150-450) K/mm3 Lymphocytes % 8.2 L (20-51) % Monocytes % 15.4 H (0.0-9) % Lymphocytes # 0.59 L (1.5-3.5) k/mm3 Monocytes # 1.1 H (0.0-1.0) k/mm3 PT 18.4 H (9.0-11.0) Seconds INR (Anticoag Therapy) 1.83 H (0.90-1.10) INR Potassium 5.6 H (3.4-4.6) mmol/L Anion Gap 6.3 L (6.8-13.8) mmol/L BUN 65 H (6-23) mg/dL Creatinine 2.69 H D (0.4-1.4) mg/dL Est GFR (Non-Af Amer) 25 L (60-130) mL/min BUN/Creatinine Ratio 24.2 H (9.0-21.6) Random Glucose 143 H (70-110) mg/dL - Exam Constitutional: Present: Alert, Oriented x3, Cooperative ENT Exam: Present: hearing grossly normal Neck: Present: supple Respiratory: Present: decreased breath sounds, crackles, wheezing Cardiovascular/Chest: Present: no JVD, no murmur, irregularly irregular Abdomen: Present: Normal bowel sounds, soft, nontender, nondistended Extremity: Present: no calf tenderness, lower extremity edema Assessment/Plan - Problems/Diagnosis (1) Cough Problem: Acute Narrative: even though w/o leukocytosis due to his pulmonary s/sx will start him on IV an tibiotics, do incentive spirometry. will get ABG. (2) CRF (chronic renal failure) Problem: Chronic Qualifiers: Chronic kidney disease stage: stage 3 (moderate) Qualified Code(s): N18.3 - Chronic kidney disease, stage 3 (moderate) Narrative: ARf on CRF- BUN/Cr improved. (3) Acute exacerbation of congestive heart failure Problem: Acute Qualifiers: Heart failure type: unspecified Qualified Code(s): I50.9 - Heart failure, unspecified Narrative: overloaded this time? will give IV lasix 20 mg x 1. (4) Hyponatremia Problem: Resolved (5) Elevated INR Problem: Resolved (6) Diabetes mellitus type 2 in obese Problem: Chronic (7) COPD (chronic obstructive pulmonary disease) Problem: Chronic Narrative: if ABG shows hypercapnea/hypoxemia- will do trial of BiPAP. (8) CAD (coronary artery disease) Problem: Chronic Qualifiers: Coronary Disease-Associated Artery/Lesion type: bypass graft [place] vs. transplanted heart: [place] heart Associated angina: without angina Qualified Code(s): I25.810 - Atherosclerosis of coronary artery bypass graft(s) without angina pectoris (9) BPH (benign prostatic hyperplasia) Problem: Acute Narrative: will start Flomax if BP holds up.. (10) Low blood pressure Problem: Resolved Qualifiers: Hypotension type: other hypotension type Qualified Code(s): I95.89 - Other hypotension Narrative: improved with IVF.
[2018-01-29] MEDS ORDERED: AZITHROMYCIN 250 MG TABLET PO ONE (09:00)
[2018-01-29] MEDS: CYANOCOBALAMIN 1,000 MCG TABLET PO SCH (09:39)
[2018-01-29] MEDS: FINASTERIDE 5 MG TABLET PO SCH (09:39)
[2018-01-29] MEDS: CARVEDILOL 12.5 MG TABLET PO SCH ×2 (09:40→20:27)
[2018-01-29] MEDS: ASPIRIN 81 MG TABLET.DR PO SCH (09:40)
[2018-01-29] MEDS: ACETAMINOPHEN 325 MG TABLET PO PRN (09:45)
[2018-01-29] MEDS: WARFARIN SODIUM 3 MG TABLET PO SCH (16:50)
[2018-01-29] MEDS: ROSUVASTATIN CALCIUM 20 MG TABLET PO SCH (20:27)
[2018-01-30 05:24] LABS: Hematocrit 33.4 % (42.0-52.0); Hemoglobin 10.2 gm/dL (13.5-18.0); Mean Cell Volume 99.1 fl (78-100); Mean Corpuscular Hemoglobin 30.3 pg (27-31); Mean Corpuscular Hgb Conc 30.5 g/dl (32-36); Mean Platelet Volume 9.4 fl (8-11.3); Neutrophil % 73.1 % (42-75.0); Platelet Count 172 K/mm3 (150-450); Red Blood Count 3.37 M/mm3 (4.7-6.0); Red Cell Distribution Width 12.7 % (11.5-14.0); White Blood Count 6.8 K/mm3 (4.0-10.5)
[2018-01-30 05:42] LABS: Anion Gap 8.9 mmol/L (6.8-13.8); BUN/Creatinine Ratio 23.4 (9.0-21.6); Calcium * 9.1 mg/dL (7.9-10.9); Carbon Dioxide 33.4 mmol/L (24-32.6); Estimated Creat Clear 29.3; Potassium 5.3 mmol/L (3.4-4.6)
[2018-01-30] MEDS: INSULIN LISPRO 100 UNITS/ML VIAL SC SCH ×3 (06:37→16:57)
[2018-01-30 08:35] LABS: Prothrombin Time (Patient) 25.3 Seconds (9.0-11.0)
[2018-01-30 08:36] LABS: INR 2.51 INR (0.90-1.10)
--- NOTE | 2018-01-30 08:39 | PN ---
Subjective - Date and Time Seen Date: 01/30/18 Time: 08:39 Subjective Narrative: Patient is SOB with conversation. BUN/Cr is improving with gentle hydration at 50 ml/hour but his BNP bumped up. Objective - Review of Systems Generalized/Overall Review: Reports: Weakness. Denies: Chills, Fever Respiratory: Reports: Cough, Shortness of Breath. Denies: Wheezing Cardiac: Reports: Edema. Denies: Chest Pain, Palpitations Abdominal: Denies: Nausea, Vomiting Genitourinary Symptoms: Denies: Urgency, Frequency - Vitals Vitals: Last Vital Signs Temp 36.3 C 01/30/18 08:17 Pulse 91 01/30/18 08:17 Resp 17 01/30/18 08:17 BP 106/64 01/30/18 08:17 Pulse Ox 90 L 01/30/18 08:32 - Abnormal Lab Findings Abnormal Lab Findings: Abnormal Lab Results 01/30/18 01/30/18 01/30/18 Range/Units 05:10 05:10 05:10 RBC 3.37 L (4.7-6.0) M/mm3 Hgb 10.2 L (13.5-18.0) gm/dL Hct 33.4 L (42.0-52.0) % MCHC 30.5 L (32-36) g/dl Lymphocytes % 8.5 L (20-51) % Monocytes % 14.3 H (0.0-9) % Eosinophils % 3.2 H (0.0-3.0) % Lymphocytes # 0.58 L (1.5-3.5) k/mm3 PT 25.3 H (9.0-11.0) Seconds INR (Anticoag Therapy) 2.51 H (0.90-1.10) INR Potassium 5.3 H (3.4-4.6) mmol/L Carbon Dioxide 33.4 H (24-32.6) mmol/L BUN 56 H (6-23) mg/dL Creatinine 2.39 H (0.4-1.4) mg/dL Est GFR (Non-Af Amer) 28 L (60-130) mL/min BUN/Creatinine Ratio 23.4 H (9.0-21.6) Random Glucose 146 H (70-110) mg/dL B-Natriuretic Peptide 03436 H (5-650) pg/mL - Exam Constitutional: Present: Alert, Oriented x3, Elderly ENT Exam: Present: hearing grossly normal Neck: Present: supple Respiratory: Present: decreased breath sounds, rales, No wheezing Cardiovascular/Chest: Present: no murmur, irregularly irregular Abdomen: Present: Normal bowel sounds, soft, nontender, nondistended Extremity: Present: no calf tenderness, lower extremity edema, pedal edema Assessment/Plan - Problems/Diagnosis (1) Cough Problem: Acute (2) CRF (chronic renal failure) Problem: Chronic Qualifiers: Chronic kidney disease stage: stage 3 (moderate) Qualified Code(s): N18.3 - Chronic kidney disease, stage 3 (moderate) Narrative: ARF on CRF . BUN/Cr improving with gentle hydration but BNP increased significantly. will hold IVF now ans start him on Lasix 20 mg IV Qdaily and monitr kidney function. (3) Acute exacerbation of congestive heart failure Problem: Acute Qualifiers: Heart failure type: unspecified Qualified Code(s): I50.9 - Heart failure, unspecified Narrative: BNP improved intitlally but got overdiuresed as developed ARF. IV lasix discontinued and IVF started but developed Acute respiratory distress - CXR showed atelectasis vs pneumonia- IV antibiotics started and incentive spirometry. (4) Hyponatremia Problem: Resolved (5) Elevated INR Problem: Resolved (6) Diabetes mellitus type 2 in obese Problem: Chronic (7) COPD (chronic obstructive pulmonary disease) Problem: Chronic Narrative: on breathing treatments and O2. I don't hear wheezing , will defer from staritng IV solumedrol. (8) CAD (coronary artery disease) Problem: Chronic Qualifiers: Coronary Disease-Associated Artery/Lesion type: bypass graft [place] vs. transplanted heart: [place] heart Associated angina: without angina Qualified Code(s): I25.810 - Atherosclerosis of coronary artery bypass graft(s) without angina pectoris (9) BPH (benign prostatic hyperplasia) Problem: Acute Narrative: had to have straight caths for urinary retention. on Proscar . flomax not started as his BP went on the low side. (10) Low blood pressure Problem: Resolved Qualifiers: Hypotension type: other hypotension type Qualified Code(s): I95.89 - Other hypotension Narrative: likely due to overdiuresis. his coreg was reduced inititially, lisinopril put on hold, lasix stopped and IVF restarted . BP now in the low 100's . But BNP is elevated and clinically SOB visibly with conversation.
[2018-01-30] MEDS: ASPIRIN 81 MG TABLET.DR PO SCH (09:45)
[2018-01-30] MEDS: CARVEDILOL 12.5 MG TABLET PO SCH ×2 (09:45→21:54)
[2018-01-30] MEDS: AZITHROMYCIN 250 MG TABLET PO SCH (09:46)
[2018-01-30] MEDS: FINASTERIDE 5 MG TABLET PO SCH (09:47)
[2018-01-30] MEDS: CYANOCOBALAMIN 1,000 MCG TABLET PO SCH (09:47)
[2018-01-30] MEDS: FUROSEMIDE 10 MG/ML VIAL IV SCH (10:16)
[2018-01-30] MEDS: LISINOPRIL 5 MG TABLET PO SCH (10:40)
[2018-01-30] MEDS: WARFARIN SODIUM 3 MG TABLET PO SCH (16:56)
[2018-01-30] MEDS: NORMAL SALINE 1,000 ML IV PRN (19:05)
[2018-01-30] MEDS: ROSUVASTATIN CALCIUM 20 MG TABLET PO SCH (21:54)
[2018-01-30] MEDS ORDERED: FUROSEMIDE 10 MG/ML VIAL IV STA ×2 (23:35→23:45)
[2018-01-31] MEDS ORDERED: FUROSEMIDE 10 MG/ML VIAL IV ONE (00:18)
[2018-01-31 00:30] LABS: Hematocrit 31.7 % (42.0-52.0); Hemoglobin 9.6 gm/dL (13.5-18.0); Mean Cell Volume 99.4 fl (78-100); Mean Corpuscular Hemoglobin 30.1 pg (27-31); Mean Corpuscular Hgb Conc 30.3 g/dl (32-36); Mean Platelet Volume 9.1 fl (8-11.3); Neutrophil # 4.1 K/mm3 (1.3-6.0); Platelet Count 140 K/mm3 (150-450); Red Blood Count 3.19 M/mm3 (4.7-6.0); Red Cell Distribution Width 12.6 % (11.5-14.0); White Blood Count 5.9 K/mm3 (4.0-10.5)
[2018-01-31 00:49] LABS: Albumin * 2.4 gm/dl (3.4-5.0); Anion Gap 5.1 mmol/L (6.8-13.8); BUN/Creatinine Ratio 22.2 (9.0-21.6); Bilirubin, Total 0.3 mg/dL (0.0-1.1); Ca. Corrected For Albumin 9.3 mg/dL (8.4-10.2); Calcium * 8.3 mg/dL (7.9-10.9); Carbon Dioxide 33.6 mmol/L (24-32.6); Potassium 4.7 mmol/L (3.4-4.6); Total Protein 6.7 gm/dL (6.2-8.2)
[2018-01-31 04:57] LABS: Prothrombin Time (Patient) 34.1 Seconds (9.0-11.0)
[2018-01-31 04:59] LABS: INR 3.37 INR (0.90-1.10)
[2018-01-31] MEDS: INSULIN LISPRO 100 UNITS/ML VIAL SC SCH ×2 (07:19→11:49)
[2018-01-31] MEDS ORDERED: LISINOPRIL 5 MG TABLET PO SCH (09:00)
[2018-01-31] MEDS ORDERED: FUROSEMIDE 10 MG/ML VIAL IV SCH (09:00)
[2018-01-31] MEDS: AZITHROMYCIN 250 MG TABLET PO SCH (09:05)
[2018-01-31] MEDS: ASPIRIN 81 MG TABLET.DR PO SCH (09:05)
[2018-01-31] MEDS: FINASTERIDE 5 MG TABLET PO SCH (09:05)
[2018-01-31] MEDS: LISINOPRIL 5 MG TABLET PO SCH (09:05)
[2018-01-31] MEDS: CARVEDILOL 12.5 MG TABLET PO SCH ×2 (09:06→20:03)
[2018-01-31] MEDS: CYANOCOBALAMIN 1,000 MCG TABLET PO SCH (09:06)
[2018-01-31] MEDS: FUROSEMIDE 10 MG/ML VIAL IV SCH (09:13)
[2018-01-31] MEDS: ACETAMINOPHEN 325 MG TABLET PO PRN (12:06)
[2018-01-31] MEDS ORDERED: BISACODYL 10 MG SUPP.RECT RC PRN (14:01)
[2018-01-31] MEDS ORDERED: LORazepam 2 MG/ML DISP.SYRIN IV PRN (14:01)
[2018-01-31] MEDS ORDERED: ATROPINE SULFATE 150 DROP BTL SL PRN (14:01)
[2018-01-31] MEDS ORDERED: HYDROPHILIC OINTMENT 454 APPL JAR TP PRN (14:01)
[2018-01-31] MEDS ORDERED: ONDANSETRON HCL/PF 2 MG/ML VIAL IV PRN (14:01)
[2018-01-31] MEDS ORDERED: PROMETHAZINE HCL 12.5 MG SUPP.RECT RC PRN (14:01)
[2018-01-31] MEDS ORDERED: guaiFENesin 100 MG/5 ML BTL PO PRN (14:01)
[2018-01-31] MEDS ORDERED: PROMETHAZINE HCL 25 MG TABLET PO PRN (14:01)
[2018-01-31] MEDS ORDERED: MORPHINE SULFATE 4 MG/ML SYRG IV PRN (14:01)
[2018-01-31] MEDS ORDERED: ONDANSETRON HCL 4 MG TABLET PO PRN (14:01)
[2018-01-31] MEDS ORDERED: POLYVINYL ALCOHOL 150 DROP BTL EACHEYE PRN (14:01)
[2018-01-31] MEDS ORDERED: ALBUTEROL SULFATE/IPRATROPIUM 3 ML NEBU IH PRN (14:10)
--- NOTE | 2018-01-31 18:11 | PN ---
Subjective - Date and Time Seen Date: 01/31/18 Time: 08:30 Subjective Narrative: Patient wearing CPAP at the time of my visit and noticable uncomfortable and restless with the mask on. Planning for a family meeting later today. Objective - Review of Systems Generalized/Overall Review: Reports: Fatigue Respiratory: Reports: Cough, Shortness of Breath Cardiac: Reports: Edema Abdominal: Reports: No Symptoms Reported Genitourinary Symptoms: Reports: No Symptoms Reported Musculoskeletal Complaints: Reports: Joint Pain, Back Pain Neurological: Reports: No Symptoms Reported Skin: Reports: No Symptoms Reported Endocrine: Reports: No Symptoms Reported Misc: All systems neg except as marked - Vitals Vitals: Last Vital Signs Temp 37.1 C 01/31/18 10:25 Pulse 80 01/31/18 12:38 Resp 21 H 01/31/18 10:25 BP 114/61 01/31/18 10:25 Pulse Ox 97 01/31/18 10:25 - Abnormal Lab Findings Abnormal Lab Findings: Abnormal Lab Results 01/30/18 01/31/18 01/31/18 Range/Units 23:39 00:25 00:25 RBC 3.19 L (4.7-6.0) M/mm3 Hgb 9.6 L (13.5-18.0) gm/dL Hct 31.7 L (42.0-52.0) % MCHC 30.3 L (32-36) g/dl Plt Count 140 L (150-450) K/mm3 Lymphocytes % 12.1 L (20-51) % Monocytes % 14.3 H (0.0-9) % Eosinophils % 3.5 H (0.0-3.0) % Lymphocytes # 0.72 L (1.5-3.5) k/mm3 PT (9.0-11.0) Seconds INR (Anticoag Therapy) (0.90-1.10) INR pCO2 69.2 H (35.0-48.0) mmHg pO2 54.1 L (83.0-108.0) mmHg HCO3 29.4 H (21.0-28.0) mmol/L Total CO2 31.5 H (19.0-24.0) mmol/L Base Excess (-2.0-3.0) mmol/L ABG pH 7.25 L (7.35-7.45) ABG O2 Sat (Measured) 81.6 L (94.0-98.0) % Potassium 4.7 H (3.4-4.6) mmol/L Carbon Dioxide 33.6 H (24-32.6) mmol/L Anion Gap 5.1 L (6.8-13.8) mmol/L BUN 48 H (6-23) mg/dL Creatinine 2.16 H (0.4-1.4) mg/dL Est GFR (Non-Af Amer) 32 L (60-130) mL/min BUN/Creatinine Ratio 22.2 H (9.0-21.6) Random Glucose 149 H (70-110) mg/dL B-Natriuretic Peptide 36033 H (5-650) pg/mL Albumin 2.4 L (3.4-5.0) gm/dl Procalcitonin (0.05-0.50) ng/mL 01/31/18 01/31/18 01/31/18 Range/Units 00:25 01:05 02:15 RBC (4.7-6.0) M/mm3 Hgb (13.5-18.0) gm/dL Hct (42.0-52.0) % MCHC (32-36) g/dl Plt Count (150-450) K/mm3 Lymphocytes % (20-51) % Monocytes % (0.0-9) % Eosinophils % (0.0-3.0) % Lymphocytes # (1.5-3.5) k/mm3 PT (9.0-11.0) Seconds INR (Anticoag Therapy) (0.90-1.10) INR pCO2 81.8 H* 66.9 H (35.0-48.0) mmHg pO2 75.1 L 56.0 L (83.0-108.0) mmHg HCO3 31.9 H 31.2 H (21.0-28.0) mmol/L Total CO2 34.4 H 33.3 H (19.0-24.0) mmol/L Base Excess 3.3 H (-2.0-3.0) mmol/L ABG pH 7.21 L 7.29 L (7.35-7.45) ABG O2 Sat (Measured) 91.2 L 84.6 L (94.0-98.0) % Potassium (3.4-4.6) mmol/L Carbon Dioxide (24-32.6) mmol/L Anion Gap (6.8-13.8) mmol/L BUN (6-23) mg/dL Creatinine (0.4-1.4) mg/dL Est GFR (Non-Af Amer) (60-130) mL/min BUN/Creatinine Ratio (9.0-21.6) Random Glucose (70-110) mg/dL B-Natriuretic Peptide (5-650) pg/mL Albumin (3.4-5.0) gm/dl Procalcitonin Less than 0.05 L (0.05-0.50) ng/mL 01/31/18 Range/Units 03:30 RBC (4.7-6.0) M/mm3 Hgb (13.5-18.0) gm/dL Hct (42.0-52.0) % MCHC (32-36) g/dl Plt Count (150-450) K/mm3 Lymphocytes % (20-51) % Monocytes % (0.0-9) % Eosinophils % (0.0-3.0) % Lymphocytes # (1.5-3.5) k/mm3 PT 34.1 H (9.0-11.0) Seconds INR (Anticoag Therapy) 3.37 H (0.90-1.10) INR pCO2 (35.0-48.0) mmHg pO2 (83.0-108.0) mmHg HCO3 (21.0-28.0) mmol/L Total CO2 (19.0-24.0) mmol/L Base Excess (-2.0-3.0) mmol/L ABG pH (7.35-7.45) ABG O2 Sat (Measured) (94.0-98.0) % Potassium (3.4-4.6) mmol/L Carbon Dioxide (24-32.6) mmol/L Anion Gap (6.8-13.8) mmol/L BUN (6-23) mg/dL Creatinine (0.4-1.4) mg/dL Est GFR (Non-Af Amer) (60-130) mL/min BUN/Creatinine Ratio (9.0-21.6) Random Glucose (70-110) mg/dL B-Natriuretic Peptide (5-650) pg/mL Albumin (3.4-5.0) gm/dl Procalcitonin (0.05-0.50) ng/mL - Exam Constitutional: Present: Alert, Oriented x3, Acute distress - uncomfortable while wearing CPAP mask, Elderly Respiratory: Present: other - Coarse breath sounds bilaterally with diffuse rhonchi and rales Cardiovascular/Chest: Present: regular rate, rhythm Abdomen: Present: soft, nontender, nondistended Extremity: Present: lower extremity edema Neurologic: Present: no motor/sensory deficits, alert, normal mood/affect, oriented x 3 Appearance: Present: appropriate appearance, appropriate insight Eye contact: Present: cooperative Thoughts: Present: normal thought pattern, no apparent hallucination Cauti Physician Documentation - Urinary Catheter Management Urethral (Teague) Date of Insertion: 02/01/18 Time of Insertion: 09:36 Assessment/Plan Plan Narrative: I will plan to meet with the patient and his family later today to discuss our plan of care. After meeting with the patient, he understands that he is at the end of his life as there is nothing else we have to offer given his CHF, COPD and CKD. The patient has decided that he would like to just be kept comfortable for as many remaining days as he has. Plan will be for hospice at discharge, with hopefully discharge tomorrow after arrangements have been made and we have met with family. - Problems/Diagnosis (1) End of life care Problem: Acute (2) Acute exacerbation of congestive heart failure Problem: Acute Qualifiers: Heart failure type: unspecified Qualified Code(s): I50.9 - Heart failure, u nspecified (3) CKD (chronic kidney disease) Problem: Chronic (4) COPD (chronic obstructive pulmonary disease) Problem: Chronic (5) Combined systolic and diastolic congestive heart failure Problem: Acute Qualifiers: Heart failure chronicity: acute on chronic Qualified Code(s): I50.43 - Acute on chronic combined systolic (congestive) and diastolic (congestive) heart failure
[2018-01-31] MEDS ORDERED: SENNOSIDES/DOCUSATE SODIUM 1 TAB TABLET PO SCH (21:00)
[2018-02-01 05:31] LABS: Prothrombin Time (Patient) 30.8 Seconds (9.0-11.0)
[2018-02-01 05:33] LABS: INR 3.05 INR (0.90-1.10)
[2018-02-01] MEDS: ASPIRIN 81 MG TABLET.DR PO SCH (09:11)
[2018-02-01] MEDS: FUROSEMIDE 10 MG/ML VIAL IV SCH (09:11)
[2018-02-01] MEDS: CARVEDILOL 12.5 MG TABLET PO SCH (09:24)
[2018-02-01] MEDS: LISINOPRIL 5 MG TABLET PO SCH (09:27)
[2018-02-01 09:28] VITALS: BP 137/76
--- NOTE | 2018-02-01 09:34 | DS ---
(1) Combined systolic and diastolic congestive heart failure Problem: Acute Qualifiers: Heart failure chronicity: acute on chronic Qualified Code(s): I50.43 - Acute on chronic combined systolic (congestive) and diastolic (congestive) heart failure (2) COPD (chronic obstructive pulmonary disease) Problem: Chronic (3) CKD (chronic kidney disease) Problem: Chronic (4) CAD (coronary artery disease) Problem: Chronic Qualifiers: Coronary Disease-Associated Artery/Lesion type: bypass graft [place] vs. transplanted heart: [place] heart Associated angina: without angina Qualified Code(s): I25.810 - Atherosclerosis of coronary artery bypass graft(s) without angina pectoris Description of Stay: ADMISSION DATE: 01/23/2018 DISCHARGE DATE: 02/01/[address] COOLEY: Mitch Hudson, is a 77-year-old white male, with previous medical history all chronic atrial fibrillation, chronic renal failure, Stage III, COPD, coronary artery disease, hypertension, who was admitted on 01/23/2018 because of increasing shortness of breath. For the last month, the patient has been noticing that he had been short of breath especially with exertion. One week prior to admission he noticed swelling of his lower extremity, weight gain, and shortness of breath even at rest. For the last 3 days his shortness of breath is even worser and so he finally decided to go to the emergency room today. The emergency room he was found to have an elevated BNP of 8653, INR of 3.9, normal WBC, Cr of 2.01, CXR of CHF with pleural effusion, ABG showed Respiratory Acidosis. . He was given IV lasix and admitted for further evaluation and treatment. He does admit to not following his diet- low salt/diabetic consistent diet. HOSPITAL COURSE: The patient was admitted for acute decompensation of combined systolic and diastolic heart failure. He has been difficult to optimally treat due to his CHF, COPD and CKD. Just a little too much diuresis and his kidney function deteriorates but with hydrating his kidneys, his CHF dramatically worsens. I had multiple long discussions with the patient and his family regarding his si tuation and ultimately the decision was made to keep the patient comfortable and to discharge from the hospital with hospice. I agree that this is a reasonable decision as the patient is near the end of his life and will likely within the next 1-2 weeks. The patient was discharged to [facility] with [facility]. Procedures Performed: none Results and Findings: Pending Mircobiology Results 01/31/18 09:15 Expectorate Sputum Sputum Culture - Preliminary No Pathogens Isolated 01/29/18 07:57 Blood Blood Culture - Preliminary NO GROWTH AFTER 48 HOURS 01/29/18 07:30 Blood Blood Culture - Preliminary NO GROWTH AFTER 48 HOURS Lab Pending Results 01/23/18 08:10: WBC 6.0, RBC 3.54 L, Hgb 10.7 L, Hct 34.9 L, MCV 98.6, MCH 30.2, MCHC 30.7 L, RDW 12.7, Plt Count 152, MPV 9.6, Immature Gran % (Auto) 0.20, Immature Gran # (Auto) 0.01, Neutrophils % 73.6, Lymphocytes % 12.6 L, Monocytes % 10.2 H, Eosinophils % 2.7, Basophils % 0.7, Nucleated RBC % 0.0, Neutrophils # 4.4, Lymphocytes # 0.75 L, Monocytes # 0.6, Eosinophils # 0.2, Absolute Basophils 0.0 01/23/18 08:10: Sodium 136, Plasma Sodium 136, Potassium 4.3, Chloride 101, Carbon Dioxide 33.3 H, Anion Gap 6.0 L, BUN 27 H, Creatinine 2.01 H, Est GFR (Non-Af Amer) 35 L, BUN/Creatinine Ratio 13.4, Random Glucose 103, Calcium 7.9, Calcium Adj for Albumin 8.2 L, Total Bilirubin 0.6, AST 28, ALT 34, Alkaline Phosphatase 114, B-Natriuretic Peptide 8653 H, Total Protein 6.8, Albumin 3.2 L 01/23/18 08:10: D-Dimer 0.53 H 01/23/18 08:10: PT 40.4 H, INR (Anticoag Therapy) 3.98 H 01/23/18 09:48: pCO2 52.7 H, pO2 64.5 L, HCO3 28.1 H, Total CO2 29.7 H, Base Excess 1.6, ABG pH 7.34 L, ABG O2 Sat (Measured) 91.2 L 01/24/18 07:59: WBC 8.5 D, RBC 3.66 L, Hgb 11.2 L, Hct 36.1 L, MCV 98.6, MCH 30.6, MCHC 31.0 L, RDW 12.7, Plt Count 166, MPV 9.7, Immature Gran % (Auto) 0.40, Immature Gran # (Auto) 0.03, Neutrophils % 78.8 H, Lymphocytes % 7.4 L, Monocytes % 11.4 H, Eosinophils % 1.4, Basophils % 0.6, Nucleated RBC % 0.0, Neutrophils # 6.7 H, Lymphocytes # 0.63 L, Monocytes # 1.0, Eosinophils # 0.1, Absolute Basophils 0.1 01/24/18 07:59: Sodium 128 L, Plasma Sodium 128 L, Potassium 3.7, Chloride 96 L, Carbon Dioxide 38.2 H, Anion Gap Less than 1.0 L, BUN 25 H, Creatinine 2.12 H, Est GFR (Non-Af Amer) 33 L, BUN/Creatinine Ratio 11.8, Random Glucose 124 H, Calcium 8.4 01/24/18 08:40: pCO2 52.8 H, pO2 61.8 L, HCO3 28.4 H, Total CO2 30.0 H, Base Excess 1.9, ABG pH 7.35, ABG O2 Sat (Measured) 90.2 L 01/24/18 09:20: PT 46.7 H, INR (Anticoag Therapy) 4.60 H* 01/25/18 05:11: PT 34.4 H, INR (Anticoag Therapy) 3.40 H 01/25/18 05:11: Sodium 138, Plasma Sodium 138, Potassium 3.9, Chloride 97, Carbon Dioxide 36.2 H, Anion Gap 8.7, BUN 30 H, Creatinine 2.13 H, Est GFR (Non- Af Amer) 32 L, BUN/Creatinine Ratio 14.1, Random Glucose 120 H, Calcium 8.5, B- Natriuretic Peptide 7899 H 01/26/18 05:10: PT 21.3 H, INR (Anticoag Therapy) 2.11 H 01/27/18 05:15: PT 17.1 H, INR (Anticoag Therapy) 1.70 H 01/27/18 05:15: WBC 8.3, RBC 3.39 L, Hgb 10.3 L, Hct 33.7 L, MCV 99.4, MCH 30.4, MCHC 30.6 L, RDW 12.6, Plt Count 166, MPV 10.2, Immature Gran % (Auto) 0.40, Immature Gran # (Auto) 0.03, Neutrophils % 73.9, Lymphocytes % 7.9 L, Monocytes % 16.1 H, Eosinophils % 1.3, Basophils % 0.4, Nucleated RBC % 0.0, Neutrophils # 6.2 H, Lymphocytes # 0.66 L, Monocytes # 1.3 H, Eosinophils # 0.1, Absolute Basophils 0.0 01/27/18 05:15: Sodium 135, Plasma Sodium 136, Potassium 4.5, Chloride 98, Carbon Dioxide 35.8 H, Anion Gap 5.7 L, BUN 59 H D, Creatinine 2.85 H D, Est GFR (Non-Af Amer) 23 L D, BUN/Creatinine Ratio 20.7, Random Glucose 136 H, Calcium 8.5 01/27/18 16:23: Sodium 133, Plasma Sodium 133, Potassium 5.3 H, Chloride 97, Carbon Dioxide 34.2 H, Anion Gap 7.1, BUN 68 H, Creatinine 3.07 H, Est GFR (Non- Af Amer) 21 L, BUN/Creatinine Ratio 22.1 H, Random Glucose 111 H, Calcium 8.3, Calcium Adj for Albumin 8.9, Total Bilirubin 0.5, AST 17, ALT 18 L, Alkaline Phosphatase 99, B-Natriuretic Peptide 7183 H, Total Protein 6.9, Albumin 2.8 L 01/28/18 05:35: PT 16.5 H, INR (Anticoag Therapy) 1.64 H 01/28/18 05:35: Sodium 133, Plasma Sodium 133, Potassium 5.0 H, Chloride 100, Carbon Dioxide 34.2 H, Anion Gap 3.8 L, BUN 69 H, Creatinine 3.14 H, Est GFR (Non-Af Amer) 21 L, BUN/Creatinine Ratio 22.0 H, Random Glucose 120 H, Calcium 8.0 01/29/18 05:19: WBC 7.2, RBC 3.28 L, Hgb 10.0 L, Hct 32.5 L, MCV 99.1, MCH 30.5, MCHC 30.8 L, RDW 12.5, Plt Count 146 L, MPV 9.1, Immature Gran % (Auto) 0.30, Immature Gran # (Auto) 0.02, Neutrophils % 72.8, Lymphocytes % 8.2 L, Monocytes % 15.4 H, Eosinophils % 2.9, Basophils % 0.4, Nucleated RBC % 0.0, Neutrophils # 5.2, Lymphocytes # 0.59 L, Monocytes # 1.1 H, Eosinophils # 0.2, Absolute Basophils 0.0 01/29/18 05:19: Sodium 134, Plasma Sodium 135, Potassium 5.6 H, Chloride 102, Carbon Dioxide 31.3, Anion Gap 6.3 L, BUN 65 H, Creatinine 2.69 H D, Est GFR (Non-Af Amer) 25 L, BUN/Creatinine Ratio 24.2 H, Random Glucose 143 H, Calcium 8.3 01/29/18 05:19: PT 18.4 H, INR (Anticoag Therapy) 1.83 H 01/29/18 08:15: pCO2 50.1 H, pO2 55.2 L, HCO3 26.1, Total CO2 27.7 H, Base Excess -0.1, ABG pH 7.34 L, ABG O2 Sat (Measured) 86.5 L 01/30/18 05:10: WBC 6.8, RBC 3.37 L, Hgb 10.2 L, Hct 33.4 L, MCV 99.1, MCH 30.3, MCHC 30.5 L, RDW 12.7, Plt Count 172, MPV 9.4, Immature Gran % (Auto) 0.30, Immature Gran # (Auto) 0.02, Neutrophils % 73.1, Lymphocytes % 8.5 L, Monocytes % 14.3 H, Eosinophils % 3.2 H, Basophils % 0.6, Nucleated RBC % 0.0, Neutrophils # 5.0, Lymphocytes # 0.58 L, Monocytes # 1.0, Eosinophils # 0.2, Absolute Basophils 0.0 01/30/18 05:10: Sodium 139, Plasma Sodium 140, Potassium 5.3 H, Chloride 102, Carbon Dioxide 33.4 H, Anion Gap 8.9, BUN 56 H, Creatinine 2.39 H, Est GFR (Non- Af Amer) 28 L, BUN/Creatinine Ratio 23.4 H, Random Glucose 146 H, Calcium 9.1, B-Natriuretic Peptide 82118 H 01/30/18 05:10: PT 25.3 H, INR (Anticoag Therapy) 2.51 H 01/30/18 23:39: pCO2 69.2 H, pO2 54.1 L, HCO3 29.4 H, Total CO2 31.5 H, Base Excess 0.9, ABG pH 7.25 L, ABG O2 Sat (Measured) 81.6 L 01/31/18 00:25: WBC 5.9, RBC 3.19 L, Hgb 9.6 L, Hct 31.7 L, MCV 99.4, MCH 30.1, MCHC 30.3 L, RDW 12.6, Plt Count 140 L, MPV 9.1, Immature Gran % (Auto) 0.30, Immature Gran # (Auto) 0.02, Neutrophils % 69.0, Lymphocytes % 12.1 L, Monocytes % 14.3 H, Eosinophils % 3.5 H, Basophils % 0.8, Nucleated RBC % 0.0, Neutrophils # 4.1, Lymphocytes # 0.72 L, Monocytes # 0.9, Eosinophils # 0.2, Absolute Basophils 0.1 01/31/18 00:25: Sodium 137, Plasma Sodium 138, Potassium 4.7 H, Chloride 103, Carbon Dioxide 33.6 H, Anion Gap 5.1 L, BUN 48 H, Creatinine 2.16 H, Est GFR (Non-Af Amer) 32 L, BUN/Creatinine Ratio 22.2 H, Random Glucose 149 H, Calcium 8.3, Calcium Adj for Albumin 9.3, Total Bilirubin 0.3, AST 29, ALT 31, Alkaline Phosphatase 123, B-Natriuretic Peptide 70076 H, Total Protein 6.7, Albumin 2.4 L 01/31/18 00:25: Procalcitonin Less than 0.05 L 01/31/18 01:05: pCO2 81.8 H*, pO2 75.1 L, HCO3 31.9 H, Total CO2 34.4 H, Base Excess 2.3, ABG pH 7.21 L, ABG O2 Sat (Measured) 91.2 L 01/31/18 02:15: pCO2 66.9 H, pO2 56.0 L, HCO3 31.2 H, Total CO2 33.3 H, Base Excess 3.3 H, ABG pH 7.29 L, ABG O2 Sat (Measured) 84.6 L 01/31/18 03:30: PT 34.1 H, INR (Anticoag Therapy) 3.37 H 02/01/18 05:10: PT 30.8 H, INR (Anticoag Therapy) 3.05 H Discharge Location: [facility] Disposition: Hospice Medical Facility Home Health Agency: [facility] Condition: Poor Level of Care: ICF Discharge Activity: Activity as tolerated Discharge Diet: General/regular food Referrals: Satish Cooley MD [Primary Care Provider] - Problem Oriented Discharge Instructions to Patient/Family: Smoking Cessation, Tips for Success, [id number] Additional Patient Instructions (free text): -Discharge to [facility] with [facility] Prescriptions (Any new or edited meds): Atropine Sulfate [Atropine 1% Ophthalmic Solution] 2 drop SL Q2H PRN #1 btl PRN Reason: Secretions Furosemide [Lasix] 40 mg PO Q6H PRN #25 tablet PRN Reason: Edema Lorazepam [Lorazepam Intensol] 2 mg PO Q2H PRN #1 bottle PRN Reason: Anxiety Morphine Sulfate [Morphine Sulfate Conc. Oral Solution] 10 mg PO Q1H PRN #30 ml PRN Reason: Pain Ondansetron [Zofran Odt] 4 mg PO Q4H PRN #20 tab PRN Reason: Nausea Complete Home Medications List: Complete Home Medication List: Carvedilol [Coreg] 12.5 mg PO BID 07/29/13 Albuterol Sulfate/Ipratropium [Duoneb 2.5-0.5MG/3ML Soln] 3 ml IH Q4H PRN nebu 02/01/18 Atropine Sulfate [Atropine 1% Ophthalmic Solution] 2 drop SL Q2H PRN #1 btl Bisacodyl [Dulcolax Suppository] 10 mg RC PRN PRN supp.rect 02/01/18 Furosemide [Lasix] 40 mg PO Q6H PRN #25 tablet 02/01/18 Hydrophilic Ointment [Aquaphilic Ointment] 1 appl TP BID PRN jar 02/01/18 Lorazepam [Lorazepam Intensol] 2 mg PO Q2H PRN #1 bottle 02/01/18 Morphine Sulfate [Morphine Sulfate Conc. Oral Solution] 10 mg PO Q1H PRN #30 ml 02/01/18 Ondansetron [Zofran Odt] 4 mg PO Q4H PRN #20 tab 10/19/18 Polyvinyl Alcohol [Artificial Tears] 2 drop EACHEYE PRN PRN btl 02/01/18 Sennosides/Docusate Sodium [Senokot-S] 2 tab PO HS PRN #60 tablet 02/01/18 guaiFENesin [Robitussin] 200 mg PO Q4H PRN btl 02/01/18
[2018-02-01] MEDS: FINASTERIDE 5 MG TABLET PO SCH (09:37)
[2018-02-01] MEDS ORDERED: WARFARIN SODIUM 1 TAB TAB PO SCH (17:00)
== END 2018-02-01 15:09 | disposition hospice, home (50) | DRG 291 ==
LOC: ER 07:39 → MS 07:39 → OBSVTOIN 10:12 → MS 11:00
PROVIDERS: ADMIT Internal Medicine; ATTEND Internal Medicine
DX: D46.0 Refractory anemia without ring sideroblasts, so stated
CPT/HCPCS: 36415; 36600; 71010; 71020; 71045; 71046; 80048; 80053; 82803; 83519; 83880; 84145; 85025; 85379; 85610; 87040; 87070; 87077; 87184; 93005; 94640; 94660; 94664; 94760; 96374; 97110; 97116; 97162; 97530; 99284